=== PATIENT | male | born 1950 | race American Indian/Alaskan Native ===

== ENCOUNTER 2018-06-30 08:41 | Emergency (ER) | payer OTHER ==
[2018-06-30 09:16] VITALS: TEMP 98.8
--- NOTE | 2018-06-30 09:30 | ED PDOC ---
Arrival/HPI - General Chief Complaint: Flu-like Symptoms Time Seen by Provider: 06/30/18 08:54 - History of Present Illness Narrative History of Present Illness (Text): 67 y/o M p/w cough x 1 week. Cough feels productive but no sputum expectorated. Reports neck and back pain with coughing. Was improving 2 days ago but then worsened again the next morning. Finished course of azithromycin. Denies fever, nuchal rigidity, vomiting, abdominal pain, extremity pains, chest pain, dyspnea, recent travel, sick contacts. Past Medical History - Cardiac Hx Hypertension: Yes - Endocrine/Metabolic Hx Diabetes Mellitus Type 2: Yes - Psychiatric Hx Substance Use: No - Surgical History Other/Comment: R knee replacement - Anesthesia Hx Anesthesia: Yes Hx Anesthesia Reactions: No Hx Malignant Hyperthermia: No Family/Social History Family/Social History: No Known Family HX Smoking Status: Never Smoked Hx Alcohol Use: No Hx Substance Use: No Allergies/Home Meds Allergies/Adverse Reactions: Allergies No Known Allergies Allergy (Verified 06/30/18 08:53) Review of Systems - Physician Review All systems were reviewed & negative as marked: Yes - Review of Systems Constitutional: absent: Fevers Respiratory: absent: SOB Physical Exam - Physical Exam Narrative Physical Exam (Text): Gen: NAD Head: NC/AT Eyes: PERRL ENT: MMM Neck: Supple. No rigidy. Chest: No tenderness CV: Regular rate Lungs: CTA b/l Abd: Soft, NT Back: No CVA tenderness Extremities: No tenderness Skin: No rash Neuro: Alert, no focal deficit Vital Signs Temp Pulse Resp BP Pulse Ox 06/30/18 08:42 98.8 F 95 H 18 147/96 H 99 Medical Decision Making ED Course and Treatment: CXR, rule out pneumonia. Influenza swab. Toradol for pain. CXR no consolidation as read by me. Influenza negative. Continue NSAIDs, cough medication, f/u PMD, return to ED for worsening dyspnea, fever, nuchal rigidity, or any other problem. - RAD Interpretation Radiology Orders: 06/30/18 09:05 CHEST TWO VIEWS (PA/LAT) [RAD] Stat - Medication Orders Current Medication Orders: Discontinued Medications Ketorolac Tromethamine (Toradol) 60 mg IM STAT STA Stop: 06/30/18 09:05 Last Admin: 06/30/18 09:19 Dose: 60 mg MAR Pain Assessment Document 06/30/18 09:19 SZLizzette (Rec: 06/30/18 09:20 [id number] Pain Reassessment Is this a pain reassessment? No Sleep Is patient sleeping during reassessment? No Presence of Pain Presence of Pain Yes IM Administration Charges Document 06/30/18 09:19 Lizzette (Rec: 06/30/18 09:20 [id number] Injection Site MAR Injection Site Left Gluteus Medius Charges for Administration # of IM Administrations 1 Disposition/Present on Arrival - Present on Arrival Any Indicators Present on Arrival: No History of DVT/PE: No History of Uncontrolled Diabetes: No Urinary Catheter: No History of Decub. Ulcer: No History Surgical Site Infection Following: None - Disposition Have Diagnosis and Disposition been Completed?: Yes Diagnosis: Cough Disposition: HOME/ ROUTINE Disposition Time: 11:08 Patient Plan: Discharge Condition: STABLE Discharge Instructions (ExitCare): Viral Upper Respiratory Infection, Adult (DC) Prescriptions: Ibuprofen [Motrin] 600 mg PO Q6 #25 tab Referrals: Tyler Smith MD [Primary Care Provider] - Follow up with primary Forms: [employer] ([place]), WORK NOTE
[2018-06-30 11:40] VITALS: BP 133/75; PULSE 80; RESP 20; O2SAT 98
--- NOTE | 2018-06-30 16:13 | RAD ---
Date of service: 06/30/2018 HISTORY: cough COMPARISON: No prior. TECHNIQUE: Chest PA and lateral FINDINGS: LUNGS: No active pulmonary disease. PLEURA: No significant pleural effusion identified. No pneumothorax apparent. CARDIOVASCULAR: No aortic atherosclerotic calcification present. Normal cardiac size. No pulmonary vascular congestion. OSSEOUS STRUCTURES: No significant abnormalities. VISUALIZED UPPER ABDOMEN: Normal. OTHER FINDINGS: None. IMPRESSION: No active disease.
== END 2018-06-30 11:44 | disposition home or self-care (01) ==
LOC: ED 08:41
DX: R05 Cough (principal); I10 Essential (primary) hypertension; E11.9 Type 2 diabetes mellitus without complications; Z96.651 Presence of right artificial knee joint
CPT/HCPCS: 71046; 87804; 96372; 99283; J1885